=== PATIENT | female | born 1960 | race Caucasian/White ===

== ENCOUNTER → 2016-10-02 | Outpatient (CLI) | payer OTHER ==
[~2016-10-02] MED LIST: CHOL1TAB46 PO; CYM/30 PO; GABA-113 PO; GLUC10007 PO; LETR2TAB PO; LEVO50TA6 PO; LORA-741 PO; MELO7.5T5 PO; MULT-506 PO; TRAM-10 PO; ZNTT/150 PO
--- NOTE | 2016-10-02 14:39 | DIAGNOSTIC IMAGING REPORT ---
SHOULDER MIN 2 VIEWS ROUTINE CLINICAL HISTORY: Left shoulder pain. History of breast cancer. COMPARISON: PET/CT May 21, 2013. FINDINGS: Alignment of left shoulder is anatomic. There is no fracture or suspicious lesion by radiography. 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 No acute fracture or suspicious lesion within the left shoulder by radiography. 2. 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 Electronically signed by: Star De La Torre M.D. 10/02/2016 2:37 PM Dictated Date/Time: 10/02/2016 2:34 PM
--- NOTE | 2016-10-02 14:51 | DIAGNOSTIC IMAGING REPORT ---
LEFT HUMERUS 2 VIEWS HISTORY: Left arm pain. BREAST CANCER COMPARISON: None. FINDINGS: There is no fracture or dislocation. Soft tissues are unremarkable. No suspicious lytic or blastic osseous lesions. IMPRESSION: No fractures. Electronically signed by: James Talbot M.D. 10/02/2016 2:49 PM Dictated Date/Time: 10/02/2016 2:47 PM
== END | disposition home or self-care (01) ==
LOC: C.RAD 13:40
PROVIDERS: ATTEND Nurse Practitioner Family
DX: C50.112 Malignant neoplasm of central portion of left female breast (principal)

== ENCOUNTER → 2018-02-18 | Outpatient (CLI) | payer OTHER ==
[~2018-02-18] MED LIST changes: +RANI150T85 PO; -ZNTT/150 PO
--- NOTE | 2018-02-18 13:43 | DIAGNOSTIC IMAGING REPORT ---
CHEST 2 VIEWS ROUTINE HISTORY: 57 years-old Female BREAST CA screening study in a patient with history of breast cancer COMPARISON: Chest radiograph 01/10/2016 TECHNIQUE: PA and lateral views of the chest FINDINGS: Cardiomediastinal and hilar silhouettes are within normal limits. No pneumothorax, pleural effusion, focal airspace consolidation or overt pulmonary edema. Linear subsegmental left basilar opacities suggest atelectasis/scarring. Left shoulder arthroplasty. Degenerative changes of the shoulders and spine. Convex right curvature about the lower thoracic spine. IMPRESSION: No acute process. The above report was generated using voice recognition software. It may contain grammatical, syntax or spelling errors. Electronically signed by: Andrez Bishop M.D. 02/18/2018 1:41 PM Dictated Date/Time: 02/18/2018 1:39 PM
[2018-02-18 14:35] LABS: BASO % 0.3 %; BASO ABS # 0.03 K/uL (0-0.2); EOS % 1.3 %; EOS ABS # 0.11 K/uL (0-0.5); HEMATOCRIT 38.7 % (37-47); HEMOGLOBIN 12.4 g/dL (12.0-16.0); IG# 0.01 K/uL (0.00-0.02); LYMPH % 28.4 %; MEAN CORPUSCULAR HEMOGLOBIN 30.8 pg (25-34); MEAN PLATELET VOLUME 10.7 fL (7.4-10.4); MONO % 6.4 %; MONO ABS # 0.56 K/uL (0.11-0.59); NEUT % 63.5 %; NEUT ABS # 5.58 K/uL (1.4-6.5); PLATELET COUNT 387 K/uL (130-400); RED CELL DISTRIBUTION WIDTH CV 13.4 % (11.5-14.5); WHITE BLOOD COUNT 8.79 K/uL (4.8-10.8)
[2018-02-18 15:05] LABS: ALBUMIN 3.9 gm/dl (3.4-5.0); ALKALINE PHOSPHATASE 93 U/L (45-117); ALT/SGPT 26 U/L (12-78); AST/SGOT 16 U/L (15-37); BLOOD UREA NITROGEN 18 mg/dl (7-18); CALCIUM 9.2 mg/dl (8.5-10.1); CARBON DIOXIDE 29 mmol/L (21-32); CREATININE 0.72 mg/dl (0.60-1.20); GLUCOSE 82 mg/dl (70-99); POTASSIUM 4.7 mmol/L (3.5-5.1); SODIUM 138 mmol/L (136-145); TOTAL PROTEIN 7.8 gm/dl (6.4-8.2)
== END | disposition home or self-care (01) ==
LOC: C.RAD 12:44
PROVIDERS: ATTEND Nurse Practitioner Family
DX: C50.112 Malignant neoplasm of central portion of left female breast (principal)